=== PATIENT | female | born 1950 | race Asian ===

== ENCOUNTER 2018-01-01 13:30 | Emergency (ER) | payer OTHER ==
[~2018-01-01] VITALS: Ht 167.6 cm; Wt 79.4 kg
[~2018-01-01 13:30] MED LIST: ALBUTEROL2.5 MG/32 IH; CIPROFLOXACIN500 M1 PO; NORCO 5-325 TA1 EACH PO; PREDNISONE 20 M20 MG PO
[2018-01-01] MEDS ORDERED: PROMETHAZINE/C118 ML PO (15:47)
[2018-01-01] MEDS ORDERED: PROAIR RESPICL90 MCG INH (15:47)
== END 2018-01-01 17:05 | disposition home or self-care (01) ==
LOC: ER 13:30
DX: J06.9 Acute upper respiratory infection, unspecified (principal)